=== PATIENT | male | born 1990 | race Caucasian/White ===

== ENCOUNTER 2017-05-29 09:30 | Emergency (ER) | payer OTHER ==
[2017-05-29 11:33] VITALS: BP 131/92
[2017-05-29] MEDS ORDERED: Tetan/Diph/Pertus SYR(Tdap)* 0.5 ML SYR(BOOSTRIX) use SYR IM ONE (11:34)
--- NOTE | 2017-05-29 11:37 | ED ---
Laceration/Wound HPI - HPI Summary HPI Summary: 26 male presents to ED from [facility] with complaints of right wrist laceration that occurred this morning around 7am after cutting it on a broken coffee mug. Patient states the bleeding is controlled. No numbness/tingling, no loss of ROM. Minimal pain. States it was unintentional. Denies SI/HI. Last tetanus unknown. No FB or pieces of glass stuck in wound. No other complaints or injuries. PMHx significant for insomnia and depression. Follows psychiatrist. - History of Current Complaint Stated Complaint: RT WRIST INJURY-SENT Bijan HESTER Time Seen by Provider: 05/29/17 09:48 Hx Obtained From: Patient Mechanism of Injury: Sharp/Blunt Trauma - broken glass Aggravating: Movement Alleviating: Compression Timing: Constant Onset Severity: Mild Current Severity: None Pain Intensity: 0 Pain Scale Used: 0-10 Numeric Associated Signs & Symptoms: Negative Related Hx: Dominant Hand (Right) - Allergy/Home Medications Allergies/Adverse Reactions: Allergies Allergy/AdvReac Type Severity Reaction Status Date / Time No Known Allergies Allergy Verified 05/29/17 09:44 PMH/Surg Hx/FS Hx/Imm Hx Endocrine/Hematology History: Denies: Hx Anticoagulant Therapy, Hx Diabetes Cardiovascular History: Denies: Hx Hypertension Respiratory History: Denies: Hx Asthma Psychiatric History: Reports: Hx Depression, Other Psychiatric Issues/Disorders - insomnia - Surgical History Surgery Procedure, Year, and Place: n/a - Immunization History Date of Tetanus Vaccine: unknown, updated today 05/29/17 Immunizations Up to Date: Yes Infectious Disease History: No Infectious Disease History: Denies: Traveled Outside the [place] in Last 30 Days - Family History Known Family History: Positive: None - Social History Alcohol Use: Occasionally Substance Use Type: Reports: None Smoking Status (MU): Never Smoked Tobacco Review of Systems Constitutional: Negative Cardiovascular: Negative Respiratory: Negative Musculoskeletal: Negative Positive: Other - laceration right wrist Neurological: Negative All Other Systems Reviewed And Are Negative: Yes Physical Exam Triage Information Reviewed: Yes Vital Signs On Initial Exam: Initial Vitals Temp Pulse Resp BP Pulse Ox 97.5 F 82 16 144/96 98 05/29/17 09:44 05/29/17 09:44 05/29/17 09:44 05/29/17 09:44 05/29/17 09:44 Vital Signs Reviewed: Yes Appearance: Positive: Well-Appearing, No Pain Distress, Well-Nourished Skin: Positive: Warm, Skin Color Reflects Adequate Perfusion, Dry, Other - ~2cm linear laceration noted on anterior flexor side of right wrist. minimal to no bleeding, appears to have tendon involement of flexor carpi radialis however patient has FROM of wrist, hand and fingers and no sensation deficit. neurovasc intact. appears to be tendon sheath. No other lacerations and rest of skin exam normal.. Negative: Cold, Tender, Cyanosis @, Pale, Erythema @ Head/Face: Positive: Normal Head/Face Inspection Eyes: Positive: Conjunctiva Clear ENT: Positive: Hearing grossly normal Neck: Positive: Supple, Nontender Respiratory/Lung Sounds: Positive: Clear to Auscultation, Breath Sounds Present. Negative: Rales, Rhonchi, Wheezes Cardiovascular: Positive: Normal, RRR, Pulses are Symmetrical in both Upper and Lower Extremities - 2+ radial b/l. Negative: Murmur, Rub Musculoskeletal: Positive: Normal, Strength/ROM Intact - entire wrist, hand and fingers, Other - no deficits. Negative: Limited @, Interruption @, Abnormal @, Pain @, Prasad Sign Left, Edema Left, Edema Right Neurological: Positive: Normal, Sensory/Motor Intact - completely intact, Alert , Oriented to Person Place, Time, CN Intact II-III, NV Bundle Intact Distally, Normal Gait Psychiatric: Positive: Affect/Mood Appropriate - Emerson Coma Scale Best Eye Response: 4 - Spontaneous Best Motor Response: 6 - Obeys Commands Best Verbal Response: 5 - Oriented Procedures - Laceration/Wound Repair 1 Location: upper extremity - right anterior wrist Description: Linear Anesthesia: Local, 1.0%, [place] Length, Depth and Shape: ~2cm linear, .5cm depth Betadine Prep?: Yes Irrigated w/ Saline (ccs): 200 Laceration/Wound Explored: clean, no foreign body removed Closure: Single Layer Suture Type: Prolene - 4-0 Number of Sutures: 2 Sterile Dressing Applied?: Yes Diagnostics - Vital Signs Vital Signs Temp Pulse Resp BP Pulse Ox 05/29/17 11:30 79 131/92 99 05/29/17 11:00 79 148/81 98 05/29/17 10:30 75 134/88 98 05/29/17 10:00 84 130/79 99 05/29/17 09:54 86 100 05/29/17 09:52 97.3 F 87 14 140/96 100 05/29/17 09:44 97.5 F 82 16 144/96 98 - Laboratory Lab Statement: Any lab studies that have been ordered have been reviewed, and results considered in the medical decision making process. Laceration Repair Course/Dx - Course Course Of Treatment: no need for x-ray or antibiotics. spoke with Dr Small due to possible tendon/tendon sheath involvement although no experiencing any MSK or neurovascular deficits. Sutured with 2, no complication, tolerated procedure well. Irrigated and cleaned before hand. Used sterile procedure. Patient will be seen by Dr Small this afternoon or tomorrow per his request. Also was told by Dr Small to suture laceration. Laceration was well approximated after sutures placed. Aware of worsening signs and symptoms such as infection, numb/ tingling, loss of ROM etc. Patient will follow up psychiatrist, ortho and PCP. Keep clean and dry. - Differential Dx Differental Diagnoses: Abrasion, Avulsion, Laceration, Tendon Laceration - Clinical Impression Provider Diagnoses: Laceration of right wrist with tendon involvement - Physician Notifications Discussed Care Of Patient With: Dr Small Time Discussed With Above Provider: 11:00 Instructed by Provider To: Send To Office Now - this afternoon or tomorrow Discharge - Discharge Plan Condition: Stable Disposition: HOME Patient Education Materials: Care For Your Stitches (ED), Laceration (ED), Tendon Laceration (ED) Referrals: [facility] [Primary Care Provider] - Dwayne Small MD [Medical Doctor] - Additional Instructions: Follow up with orthopedist either later this afternoon or tomorrow for further evaluation involving tendon. Keep sutures clean and dry. do not get wet. Do nut scrub wound. Follow directions of orthopedist. If stitches stay in, have removed in 7 days. Apply triple antibiotic after 48 hours of placement. Watch for worsening signs and symptoms for infection, or numbness tingling, unable to move fingers etc- if these develop seek medical attention promptly.
== END 2017-05-29 12:01 | disposition home or self-care (01) ==
LOC: ED 09:30
DX: S61.511A Laceration without foreign body of right wrist, initial encounter (principal); W25.XXXA Contact with sharp glass, initial encounter; Y93.89 Activity, other specified; Y92.89 Other specified places as the place of occurrence of the external cause
CPT/HCPCS: 90715; 99281

== ENCOUNTER → 2017-11-01 00:25 | Emergency (ER) | payer OTHER ==
[~2017-11-01 00:25] MED LIST: Tetan/Diph/Pertus SYR(Tdap)* 0.5 ML SYR(BOOSTRIX) use SYR IM ONE
--- NOTE | 2017-11-01 01:53 | ED ---
Head Injury - HPI Summary HPI Summary: 27-year-old male presents with head injury today. He states he had a couple drinks and then fell onto back of his head. He has lacerations to the head. The area is actively bleeding. No loss of consciousness. Denies any nausea or vomiting. He admits to mild headache. He denies any dizziness. He denies any change in vision. He does not know his last tetanus was. He states he took an ambien tonight too. - History Of Current Complaint Chief Complaint: EDLacSutureRecheck Stated Complaint: HEAD INJURY Time Seen by Provider: 11/01/17 00:57 Pain Intensity: 0 - Allergies/Home Medications Allergies/Adverse Reactions: Allergies Allergy/AdvReac Type Severity Reaction Status Date / Time No Known Allergies Allergy Verified 11/01/17 00:31 PMH/Surg Hx/FS Hx/Imm Hx Endocrine/Hematology History: Denies: Hx Anticoagulant Therapy, Hx Diabetes Cardiovascular History: Denies: Hx Hypertension Respiratory History: Denies: Hx Asthma Psychiatric History: Reports: Hx Depression, Other Psychiatric Issues/Disorders - insomnia - Surgical History Surgery Procedure, Year, and Place: n/a - Immunization History Date of Tetanus Vaccine: unknown, updated today 05/29/17 Infectious Disease History: No Infectious Disease History: Denies: Traveled Outside the [place] in Last 30 Days - Family History Known Family History: Positive: None - Social History Alcohol Use: Occasionally Substance Use Type: Reports: None Smoking Status (MU): Never Smoked Tobacco Review of Systems Negative: Fever Negative: Chest Pain Negative: Shortness Of Breath Positive: Other - scalp laceration Positive: Headache All Other Systems Reviewed And Are Negative: Yes Physical Exam Triage Information Reviewed: Yes Vital Signs On Initial Exam: Initial Vitals Temp Pulse Resp BP Pulse Ox 97.6 F 101 18 127/75 97 11/01/17 00:28 11/01/17 00:28 11/01/17 00:28 11/01/17 00:28 11/01/17 00:28 Vital Signs Reviewed: Yes Completion Of Physical Exam Limited Due To: Other - intoxication Appearance: Positive: Well-Appearing Skin: Positive: Warm, Dry, Other - 4 cm superficial laceration to back of scalp Head/Face: Positive: Normal Head/Face Inspection, Other - No step-off, raccoon eyes, martinez sign Eyes: Positive: Normal, EOMI, GIACOMO, Conjunctiva Clear ENT: Positive: Normal ENT inspection, Pharynx normal, TMs normal Neck: Positive: Other: - Nontender neck, full range of motion neck Respiratory/Lung Sounds: Positive: Clear to Auscultation, Breath Sounds Present Cardiovascular: Positive: Normal, RRR Abdomen Description: Positive: Nontender, Soft Bowel Sounds: Positive: Present Musculoskeletal: Positive: Normal Neurological: Positive: Sensory/Motor Intact, Alert, Oriented to Person Place, Time, CN Intact II-III, Other Procedures - Laceration/Wound Repair 1 Location: head Description: Linear Length, Depth and Shape: 4 cm superficial Irrigated w/ Saline (ccs): 100 Laceration/Wound Explored: clean, no foreign body removed Closure: [place] #__ - 4 Diagnostics - Vital Signs Vital Signs Temp Pulse Resp BP Pulse Ox 11/01/17 00:28 97.6 F 101 18 127/75 97 - Laboratory Lab Statement: Any lab studies that have been ordered have been reviewed, and results considered in the medical decision making process. - CT brain CT Interpretation: No Acute Changes CT Interpretation Completed By: Radiologist Head Injury Course/Dx Course Of Treatment: 27-year-old male presents with head injury today. He states he had a couple drinks and then fell onto back of his head. He has lacerations to the head. The area is actively bleeding. No loss of consciousness. Denies any nausea or vomiting. He admits to mild headache. He denies any dizziness. He denies any change in vision. He does not know his last tetanus was. On exam patient is visibly intoxicated. He has 4 cm laceration to the back of head. Normal neuro exam. Got CT due to alcohol intoxication. CT brain normal. Clean the area and placed 4 judith. The patient understands and agrees the plan. - Diagnoses Differential Diagnosis/HQI/PQRI: Concussion Without LOC, Contusion, Intracranial Bleed, Laceration Provider Diagnoses: Head injury, Scalp laceration Discharge - Discharge Plan Condition: Good Disposition: HOME Patient Education Materials: Head Injury (ED), Staple Care (ED) [facility] - Additional Instructions: Take Tylenol or ibuprofen for pain every 6 hours Do not scrub staple area Return to ED, urgent care or primary in 7-10 days to have judith removed Follow up with primary within 5 days Modify activities as tolerated Return to ED if develop signs of infection such as fever, spreading redness, or any new or worsening symptoms
[2017-11-01 02:38] VITALS: BP 128/83
--- NOTE | 2017-11-01 08:06 | RAD ---
Indication: Confusion with laceration. CT of the brain was performed without IV contrast. Ventricular structures are midline. No midline shift is noted. The extra-axial spaces are unremarkable. There is no evidence of intracranial mass or hemorrhage. No other high or low density lesions are identified. Mastoid air cells and paranasal sinuses are otherwise unremarkable. IMPRESSION: No intracranial mass or hemorrhage is noted.
== END | disposition home or self-care (01) ==
LOC: ED 00:25
DX: S09.90XA Unspecified injury of head, initial encounter (principal); S01.01XA Laceration without foreign body of scalp, initial encounter; W19.XXXA Unspecified fall, initial encounter; Y92.9 Unspecified place or not applicable
CPT/HCPCS: 12002; 70450; 96372; 99282

== ENCOUNTER 2018-04-30 22:48 | Emergency (ER) | payer OTHER ==
[2018-05-01] MEDS ORDERED: HYDROcodone/ACETAMIN 5-325 MG* 1 TAB PO ONE (00:28)
--- NOTE | 2018-05-01 00:28 | ED ---
Throat Pain/Nasal Congestion - HPI Summary HPI Summary: Complains of dental pain and posterior right bottom side of mouth 3-4 days. Denies fever, dysphagia, sore throat, ear pain, jaw motion limitation, DÍAZ, purulent discharge. Medical history is none. - History of Current Complaint Chief Complaint: EDDentalPain Time Seen by Provider: 04/30/18 23:35 Hx Obtained From: Patient Onset/Duration: Gradual Onset Severity: Moderate Associated Signs And Symptoms: Positive: Negative Cough: None - Allergies/Home Medications Allergies/Adverse Reactions: Allergies Allergy/AdvReac Type Severity Reaction Status Date / Time No Known Allergies Allergy Verified 11/01/17 00:31 PMH/Surg Hx/FS Hx/Imm Hx Endocrine/Hematology History: Denies: Hx Anticoagulant Therapy, Hx Diabetes Cardiovascular History: Denies: Hx Hypertension Respiratory History: Denies: Hx Asthma Psychiatric History: Reports: Hx Depression, Other Psychiatric Issues/Disorders - insomnia - Surgical History Surgery Procedure, Year, and Place: n/a - Immunization History Date of Tetanus Vaccine: unknown, updated today 05/29/17 Infectious Disease History: No Infectious Disease History: Reports: Traveled Outside the [place] in Last 30 Days - [place] - Family History Known Family History: Positive: None - Social History Alcohol Use: Occasionally Substance Use Type: Reports: None Smoking Status (MU): Never Smoked Tobacco Review of Systems Constitutional: Negative Eyes: Negative ENT: Negative Cardiovascular: Negative Respiratory: Negative Gastrointestinal: Negative Genitourinary: Negative Musculoskeletal: Negative Skin: Negative Neurological: Negative Psychological: Normal All Other Systems Reviewed And Are Negative: Yes Physical Exam - Summary Physical Exam Summary: No oral lesions, abscesses, swelling, purulent discharge noted. No obvious dental caries or tooth decay or trauma. Triage Information Reviewed: Yes Vital Signs On Initial Exam: Initial Vitals Temp Pulse Resp BP Pulse Ox 99.1 F 117 20 148/92 96 04/30/18 22:50 04/30/18 22:50 04/30/18 22:50 04/30/18 22:50 04/30/18 22:50 Vital Signs Reviewed: Yes Appearance: Positive: Well-Appearing Skin: Positive: Warm Head/Face: Positive: Normal Head/Face Inspection Eyes: Positive: Normal ENT: Positive: Normal ENT inspection Dental: Positive: Percussion Tenderness @. Negative: Abscess @ Neck: Positive: Supple Respiratory/Lung Sounds: Positive: Clear to Auscultation Cardiovascular: Positive: Normal Abdomen Description: Positive: Nontender Musculoskeletal: Positive: Normal Neurological: Positive: Normal Psychiatric: Positive: Normal AVPU Assessment: Alert - Marisa Coma Scale Best Eye Response: 4 - Spontaneous Best Motor Response: 6 - Obeys Commands Best Verbal Response: 5 - Oriented Coma Scale Total: 15 Diagnostics - Vital Signs Vital Signs Temp Pulse Resp BP Pulse Ox 04/30/18 22:50 99.1 F 117 20 148/92 96 - Laboratory Lab Statement: Any lab studies that have been ordered have been reviewed, and results considered in the medical decision making process. EENT Course/Dx - Course Course Of Treatment: Complains of dental pain and posterior right bottom side of mouth 3-4 days. Denies fever, dysphagia, sore throat, ear pain, jaw motion limitation, DÍAZ, purulent discharge. Medical history is none. PE; No oral lesions, abscesses, swelling, purulent discharge noted. No obvious dental caries or tooth decay or trauma. Vital signs within normal limits. Rx for hydrocodone, Armen Bey Follow-up with dentist - Diagnoses Provider Diagnoses: Pain, dental Discharge - Sign-Out/Discharge Documenting (check all that apply): Patient Departure - Discharge Plan Condition: Stable Disposition: HOME Prescriptions: HYDROcodone/ACETAMIN 5-325 MG* [[place] 5-325 TAB*] 1 tab PO Q6H PRN 2 Days #6 tab MDD 4 tabs PRN Reason: Pain Penicillin VK 500 MG TAB(NF) [Penicillin VK 500 mg Tab] 500 mg PO QID 7 Days # 28 tab Patient Education Materials: Toothache (ED) Referrals: No Primary Care Phys,NOPCP [Primary Care Provider] - Additional Instructions: Follow-up with your dentist. Return to the ED for any new or worsening symptoms - Billing Disposition and Condition Condition: STABLE Disposition: Home
[2018-05-01 01:17] VITALS: BP 141/97
== END 2018-05-01 01:14 | disposition home or self-care (01) ==
LOC: ED 22:48
DX: K08.89 Other specified disorders of teeth and supporting structures (principal)
CPT/HCPCS: 99282